=== PATIENT | male | born 1990 | race Caucasian/White ===

== ENCOUNTER 2018-01-07 19:21 | Emergency (ER) | payer OTHER ==
[~2018-01-07] VITALS: Ht 182.9 cm; Wt 89.0 kg
[2018-01-07 19:23] VITALS: TEMP 36.8; Ht 182.9 cm; Wt 89.0 kg
[2018-01-07] MEDS ORDERED: KETOROLAC TROMETHAMINE 30 MG/ML VIAL IV STA (19:38)
[2018-01-07] MEDS ORDERED: SODIUM CHLORIDE 0.9% 1000ML 1,000 ML IV STA (19:38)
[2018-01-07 20:02] LABS: BASO % 0.2 %; BASO ABS # 0.02 K/uL (0-0.2); EOS % 0.2 %; EOS ABS # 0.02 K/uL (0-0.5); HEMATOCRIT 43.4 % (42-52); HEMOGLOBIN 15.2 g/dL (14.0-18.0); IG# 0.04 K/uL (0.00-0.02); LYMPH % 9.5 %; LYMPH ABS # 1.21 K/uL (1.2-3.4); MEAN CELL VOLUME 87.5 fL (80-100); MEAN CORPUSCULAR HEMOGLOBIN 30.6 pg (25-34); MEAN PLATELET VOLUME 11.5 fL (7.4-10.4); MONO % 8.3 %; MONO ABS # 1.06 K/uL (0.11-0.59); NEUT % 81.5 %; NEUT ABS # 10.43 K/uL (1.4-6.5); PLATELET COUNT 183 K/uL (130-400); RED CELL DISTRIBUTION WIDTH CV 12.8 % (11.5-14.5); WHITE BLOOD COUNT 12.78 K/uL (4.8-10.8)
--- NOTE | 2018-01-07 20:21 | DIAGNOSTIC IMAGING REPORT ---
CHEST ONE VIEW PORTABLE CLINICAL HISTORY: EVALUATE ALTERED MENTAL STATUS/WEAKNESS COMPARISON STUDY: No previous studies for comparison. FINDINGS: Lung volumes are normal. There is no pneumothorax or pleural effusion. There is no consolidation or evidence for pulmonary edema. Cardiac size is normal. Mediastinal contours are normal. There may be a dilated gas-filled loop of small bowel within the left upper quadrant. IMPRESSION: 1. No acute cardiopulmonary findings. 2. Possible dilated gas-filled loop of small bowel within the left upper quadrant which could be correlated with evidence for a bowel obstruction. Electronically signed by: Khurram Michelle M.D. 01/07/2018 8:20 PM Dictated Date/Time: 01/07/2018 8:18 PM
[2018-01-07 20:28] LABS: ALBUMIN 3.9 gm/dl (3.4-5.0); ALKALINE PHOSPHATASE 117 U/L (45-117); ALT/SGPT 132 U/L (12-78); AST/SGOT 55 U/L (15-37); BLOOD UREA NITROGEN 9 mg/dl (7-18); CALCIUM 9.4 mg/dl (8.5-10.1); CARBON DIOXIDE 26 mmol/L (21-32); CKMB < 1.0 ng/ml (0.5-3.6); CREATININE 1.18 mg/dl (0.60-1.40); GLUCOSE 129 mg/dl (70-99); LIPASE 55 U/L (73-393); POTASSIUM 3.4 mmol/L (3.5-5.1); SODIUM 136 mmol/L (136-145); TOTAL PROTEIN 8.2 gm/dl (6.4-8.2)
--- NOTE | 2018-01-07 20:55 | DIAGNOSTIC IMAGING REPORT ---
LUMBAR SPINE WITHOUT CLINICAL HISTORY: Low back pain. Weight loss. Fever. COMPARISON STUDY: No previous studies for comparison. TECHNIQUE: Axial images of the lumbar spine were obtained without IV contrast. Sagittal and coronal reconstructions were viewed. FINDINGS: Alignment of the lumbar spine is anatomic. Vertebral body heights are maintained. There is no fracture or suspicious lesion by CT. Paravertebral soft tissues are unremarkable. Sacroiliac joints are intact. Central canal and neural foramen are suboptimally assessed by CT. However, there is no evidence for significant central canal stenosis. There may be minimal disc bulge at L5-S1. IMPRESSION: 1. No acute lumbar spine fracture or subluxation. 2. No significant central canal stenosis by CT. Probable mild disc bulge at L5-S1. Electronically signed by: Khurram Michelle M.D. 01/07/2018 8:53 PM Dictated Date/Time: 01/07/2018 8:50 PM
[2018-01-07] MEDS ORDERED: SALONPAS TOP (21:24)
--- NOTE | 2018-01-07 21:59 | EMERGENCY ROOM VISIT NOTE ---
History Report prepared by Arline: Edna Lindquist Under the Supervision of: Dr. Alex Garcia D.O. First contact with patient: 19:27 Chief Complaint: ILLNESS Stated Complaint: WEIGHT LOSS,MUSCLE STIFFNESS,FEVER History of Present Illness The patient is a 27 year old male who presents to the Emergency Room with complaints of worsening lower back pain that started 3 days ago. The patient reports that his back pain radiates down his legs. He notes that he has an over- the-counter patch on his back that relieves his pain. The patient notes that the pain worsens when he stands. The patient reports that he was lifting weights when his pain first started, but he is ex- and claims he has been lifting for years. He states that he has been trying to lose weight over the past 2-3 months by walking, eating less but more frequently, and drinking water. The patient also complains of a sore throat that started 2 days ago, intermittent chills, and muscle stiffness and pain in the back of his leg. He notes that he has been staying in [place] for the past few months and just flew in to [place] today. He states that he has been smoking marijuana in [place]. Source of History: patient Onset: 3 days ago Position: back (lower) Quality: other (pain) Timing: worsening Modifying Factors (Worsening): other (standing) Modifying Factors (Relieving): other ([id number] patch) Associated Symptoms: + chills (intermittent), + sorethroat Note: Additional symptoms: muscle stiffness, leg pain Review of Systems See HPI for pertinent positives & negatives. A total of 10 systems reviewed and were otherwise negative. Family History No pertinent family history Social History Smoking Status: Current Some Day Smoker Alcohol Use: occasionally Drug Use: marijuana Marital Status: single Current/Historical Medications Scheduled PRN [Salonpas Patch], 1 PATCH TOP UD PRN for Pain Physical Exam Vital Signs Date Time Temp Pulse Resp B/P (MAP) Pulse Ox O2 Delivery O2 Flow Rate FiO2 01/07/18 22:12 85 18 118/74 98 Room Air 01/07/18 20:58 77 18 126/71 98 Room Air 01/07/18 19:23 36.8 109 18 131/81 98 Room Air Physical Exam CONSTITUTIONAL/VITAL SIGNS: Reviewed / noted above. GENERAL: Non-toxic in appearance. INTEGUMENTARY: Warm, dry, and [place]. HEAD: Normocephalic. EYES: without scleral icterus or trauma. ENT/OROPHARYNX: clear and moist. LYMPHADENOPATHY/NECK: Is supple without lymphadenopathy or meningismus. RESPIRATORY: Lungs clear and equal. CARDIOVASCULAR: Regular rate and rhythm. GI/ABDOMEN: Soft and nontender. No organomegaly or pulsatile mass. No rebound or guarding. Normal bowel sounds. EXTREMITIES: Warm and well perfused. BACK: No CVA tenderness. NEUROLOGICAL: Intact without focal deficits. PSYCHIATRIC: normal affect. MUSCULOSKELETAL: Normally developed with good muscle tone. Medical Decision & Procedures ER Provider Diagnostic Interpretation: Radiology results as stated below per my review and radiologist interpretation: LUMBAR SPINE WITHOUT CLINICAL HISTORY: Low back pain. Weight loss. Fever. COMPARISON STUDY: No previous studies for comparison. TECHNIQUE: Axial images of the lumbar spine were obtained without IV contrast. Sagittal and coronal reconstructions were viewed. FINDINGS: Alignment of the lumbar spine is anatomic. Vertebral body heights are maintained. There is no fracture or suspicious lesion by CT. Paravertebral soft tissues are unremarkable. Sacroiliac joints are intact. Central canal and neural foramen are suboptimally assessed by CT. However, there is no evidence for significant central canal stenosis. There may be minimal disc bulge at L5-S1. IMPRESSION: 1. No acute lumbar spine fracture or subluxation. 2. No significant central canal stenosis by CT. Probable mild disc bulge at L5-S1. Electronically signed by: Khurram Michelle M.D. 01/07/2018 8:53 PM Dictated Date/Time: 01/07/2018 8:50 PM CHEST ONE VIEW PORTABLE CLINICAL HISTORY: EVALUATE ALTERED MENTAL STATUS/WEAKNESS COMPARISON STUDY: No previous studies for comparison. FINDINGS: Lung volumes are normal. There is no pneumothorax or pleural effusion. There is no consolidation or evidence for pulmonary edema. Cardiac size is normal. Mediastinal contours are normal. There may be a dilated gas-filled loop of small bowel within the left upper quadrant. IMPRESSION: 1. No acute cardiopulmonary findings. 2. Possible dilated gas-filled loop of small bowel within the left upper quadrant which could be correlated with evidence for a bowel obstruction. Electronically signed by: Khurram Michelle M.D. 01/07/2018 8:20 PM Dictated Date/Time: 01/07/2018 8:18 PM Laboratory Results 01/07/18 19:45 Red Blood Count 4.96, Mean Corpuscular Volume 87.5, Mean Corpuscular Hemoglobin 30.6, Mean Corpuscular Hemoglobin Concent 35.0, Mean Platelet Volume 11.5, Neutrophils (%) (Auto) 81.5, Lymphocytes (%) (Auto) 9.5, Monocytes (%) (Auto) 8.3, Eosinophils (%) (Auto) 0.2, Basophils (%) (Auto) 0.2, Neutrophils # (Auto) 10.43, Lymphocytes # (Auto) 1.21, Monocytes # (Auto) 1.06, Eosinophils # (Auto) 0.02, Basophils # (Auto) 0.02 01/07/18 19:45 Test 01/07/18 19:45 01/07/18 20:24 White Blood Count 12.78 K/uL (4.8-10.8) Red Blood Count 4.96 M/uL (4.7-6.1) Hemoglobin 15.2 g/dL (14.0-18.0) Hematocrit 43.4 % (42-52) Mean Corpuscular Volume 87.5 fL (80-100) Mean Corpuscular Hemoglobin 30.6 pg (25-34) Mean Corpuscular Hemoglobin Concent 35.0 g/dl (32-36) Platelet Count 183 K/uL (130-400) Mean Platelet Volume 11.5 fL (7.4-10.4) Neutrophils (%) (Auto) 81.5 % Lymphocytes (%) (Auto) 9.5 % Monocytes (%) (Auto) 8.3 % Eosinophils (%) (Auto) 0.2 % Basophils (%) (Auto) 0.2 % Neutrophils # (Auto) 10.43 K/uL (1.4-6.5) Lymphocytes # (Auto) 1.21 K/uL (1.2-3.4) Monocytes # (Auto) 1.06 K/uL (0.11-0.59) Eosinophils # (Auto) 0.02 K/uL (0-0.5) Basophils # (Auto) 0.02 K/uL (0-0.2) RDW Standard Deviation 41.0 fL (36.4-46.3) RDW Coefficient of Variation 12.8 % (11.5-14.5) Immature Granulocyte % (Auto) 0.3 % Immature Granulocyte # (Auto) 0.04 K/uL (0.00-0.02) Anion Gap 9.0 mmol/L (3-11) Est Creatinine Clear Calc Drug Dose 103.2 ml/min Estimated GFR () 97.4 Estimated GFR (Non- 84.1 BUN/Creatinine Ratio 7.6 (10-20) Calcium Level 9.4 mg/dl (8.5-10.1) Magnesium Level 1.9 mg/dl (1.8-2.4) Total Bilirubin 1.1 mg/dl (0.2-1) Direct Bilirubin 0.3 mg/dl (0-0.2) Aspartate Amino Transf (AST/SGOT) 55 U/L (15-37) Alanine Aminotransferase (ALT/SGPT) 132 U/L (12-78) Alkaline Phosphatase 117 U/L (45-117) Total Creatine Kinase 106 U/L (39-308) Creatine Kinase MB < 1.0 ng/ml (0.5-3.6) Creatine Kinase MB Ratio (0-3.0) Total Protein 8.2 gm/dl (6.4-8.2) Albumin 3.9 gm/dl (3.4-5.0) Lipase 55 U/L (73-393) Thyroid Stimulating Hormone (TSH) 1.540 uIu/ml (0.300-4.500) Urine Color DK YELLOW Urine Appearance CLOUDY (CLEAR) Urine pH 6.0 (4.5-7.5) Urine Specific [place] 1.029 (1.000-1.030) Urine Protein 1+ (NEG) Urine Glucose (UA) NEG (NEG) Urine Ketones 3+ (NEG) Urine Occult Blood NEG (NEG) Urine Nitrite POS (NEG) Urine Bilirubin NEG (NEG) Urine Urobilinogen NEG (NEG) Urine Leukocyte Esterase TRACE (NEG) Urine WBC (Auto) 5-10 /hpf (0-5) Urine RBC (Auto) 0-4 /hpf (0-4) Urine Hyaline Casts (Auto) 1-5 /lpf (0-5) Urine Epithelial Cells (Auto) >30 /lpf (0-5) Urine Bacteria (Auto) NEG (NEG) Urine Renal Epithelial Cells 0-5 /lpf (0-5) Urine Pathogenic Casts /lpf (0) Urine Mucus PRESENT (NONE PRSENT) Laboratory results as stated above per my review. Medications Administered Medications (Trade) Dose Ordered Sig/Satya Route Start Time Stop Time Status Last Admin Dose Admin Sodium Chloride 1,000 ml @ 999 mls/hr Q1H1M STAT IV 01/07/18 19:38 01/07/18 20:38 DC 01/07/18 19:51 999 MLS/HR Ketorolac Tromethamine (Toradol Inj) 30 mg NOW STAT IV 01/07/18 19:38 01/07/18 19:40 DC 01/07/18 19:52 30 MG ED Course 1931: Previous medical records were reviewed. The patient was evaluated in room A12. A complete history and physical examination was performed. 1937: Administered Toradol Inj 30 mg Iv, Sodium Chloride 1000 ml @ 999 mls/hr IV. 2199: On reevaluation, the patient is resting. I discussed the results and findings with the patient. He verbalized agreement of the treatment plan. The patient was discharged home. Medical Decision Differential includes acute coronary syndrome, myocardial infarction, CVA, TIA, anemia, infection, pneumonia, UTI, pyelonephritis, poor nutrition, dehydration, electrolyte disturbance,hypoglycemia. This is a 27-year-old male who presents to the ED with a chief complaint of back discomfort that is worsened with movements. He also reports some muscle stiffness and a sore throat. He has had a sore throat and some chills for the past couple of days. He has had his back pain since Wednesday. The patient is using a lidocaine patch and that seems to help his symptoms. His physical exam reveals no significant abnormality. His heart rate was noted to be 109. CT scan lumbar spine reveals no acute process. White blood cell count was mildly elevated 12.7. Glucose is 129. AST, ALT and total bilirubin are mildly elevated. Urine reveals 3+ ketones and positive nitrite but no evidence of bacteria. The patient was told the results of the test. He does report that he is been on a weight loss program and has lost a moderate amount of weight over the past couple of months. He is to follow-up with his PCP for further evaluation and care. Medication Reconcilliation Current Medication List: was personally reviewed by me Blood Pressure Screening Patient's blood pressure: Normal blood pressure Impression Primary Impression: Back pain Additional Impressions: Transaminitis Dehydration Scribe Attestation The scribe's documentation has been prepared under my direction and personally reviewed by me in its entirety. I confirm that the note above accurately reflects all work, treatment, procedures, and medical decision making performed by me. Departure Information Dispostion Home / Self-Care Referrals No Doctor, Assigned (PCP) Forms HOME CARE DOCUMENTATION FORM, IMPORTANT VISIT INFORMATION, WORK / SCHOOL INSTRUCTIONS Patient Instructions My [facility] Additional Instructions Your liver function tests today are slightly elevated. Your blood sugar is slightly elevated. The CT scan of your lumbar spine did not show any acute abnormalities. Follow-up with your doctor for further evaluation of your symptoms. Call on Wednesday for an appointment. Return for sentiment worsening or new symptoms. Problem Qualifiers
[2018-01-07 22:12] VITALS: BP 118/74; PULSE 85; O2SAT 98
== END 2018-01-07 21:19 | disposition home or self-care (01) ==
LOC: C.EDB 19:22 → C.EDA 21:19
DX: M54.5 Low back pain (principal); R74.0 Nonspecific elevation of levels of transaminase and lactic acid dehydrogenase [LDH]; E86.0 Dehydration; R73.9 Hyperglycemia, unspecified; R68.83 Chills (without fever); J02.9 Acute pharyngitis, unspecified; F17.200 Nicotine dependence, unspecified, uncomplicated